=== PATIENT | female | born 1995 ===

== ENCOUNTER 2019-10-30 11:19 | Outpatient (REF) | payer BC, SELFPAY ==
[2019-10-30 22:24] LABS: ALT 20 U/L (14-59); AST 11 U/L (15-37); Albumin 3.3 g/dL (3.4-5.0); Alkaline Phosphatase 78 U/L (46-116); Anion Gap 10.7 mmol/L (3-11); BUN 11 mg/dL (7-18); Bilirubin, Total 0.2 mg/dL (0.2-1.0); CO2 25.3 mmol/L (21.0-32.0); CREATININE 0.68 mg/dL (0.55-1.02); Calcium 9.3 mg/dL (8.5-10.1); Calculated LDL 112 mg/dL (<100); Chloride 103 mmol/L (98-107); Cholesterol 180 mg/dL (<200); Glucose 76 mg/dL (74-106); HDL Cholesterol 45 mg/dL (40-60); Potassium 4.7 mmol/L (3.5-5.1); Sodium 139 mmol/L (136-145); Total Protein 7.3 g/dL (6.4-8.2); Triglyceride 115 mg/dL (<150)
== END 2019-10-30 11:39 ==
LOC: NCHCN 11:19
PROVIDERS: Visit Provider Family Medicine
DX: Z00.00 Encounter for general adult medical examination without abnormal findings (principal); E66.01 Morbid (severe) obesity due to excess calories
CPT/HCPCS: 80053; 80061